=== PATIENT | male | born 1990 | race Caucasian/White ===

== ENCOUNTER 2023-11-05 15:31 | Emergency (ER) | payer OTHER, SELFPAY ==
[2023-11-05 15:37] VITALS: BP 140/99; PULSE 89; TEMP 37.4; O2SAT 99; BMI 33.0
--- NOTE | 2023-11-05 15:47 | ED.NAVMDI1 ---
HPI - Nausea/Vomiting/Diarrhea General Chief complaint: Nausea/Vomiting/Diarrhea Stated complaint: ABDOMINAL PAIN, NAUSEA Time Seen by Provider: 11/05/23 15:41 Source: patient Mode of arrival: walk-in Limitations: no limitations History of Present Illness HPI Narrative: 33-year-old male presents for nausea and vomiting. He has had this for 6 days. He has been seen at 2 other emergency departments and his family doctor in these past 6 days. He has not had fever or hematemesis. He was told that this is due to smoking marijuana. Related Data Previous Rx's ?Medication ?Instructions ?Recorded metronidazole 500 mg tablet 500 mg PO TID #30 tabs 11/05/23 promethazine 25 mg tablet 25 mg PO Q6H PRN nausea and 11/05/23 vomiting #20 tabs Allergies Allergy/AdvReac Type Severity Reaction Status Date / Time No Known Drug Allergies Allergy Verified 11/05/23 15:36 Review of Systems ROS Narrative A ten point review of systems is negative except as noted above. Exam Narrative Exam Narrative: Nurses note and vital signs reviewed and patient is not hypoxic. General: The patient appears well and in no apparent distress. Skin: Warm, dry, no pallor noted. There is no rash noted. Head: Normocephalic, atraumatic Eye: Normal conjunctiva, no drainage Ears, Nose, Mouth, and Throat: oral mucosa is moist. Nares patent. Cardiovascular: Regular Rate and Rhythm Respiratory: Patient is in no distress, no accessory muscle use, lungs are clear to auscultation, no wheezing, rales or rhonchi Back: non-tender GI: no tenderness to palpation, no masses appreciated. No rebound, guarding, or rigidity noted. Musculoskeletal: The patient has no evidence of calf tenderness, no pitting edema, symmetrical pulses noted bilaterally Neurological: A&O, normal speech Psychiatric: Cooperative Constitutional Vital Signs, click to edit/add: Last Vital Signs Temp 99.3 F 11/05/23 15:37 Pulse 54 L 11/05/23 16:49 Resp 16 11/05/23 16:49 BP 160/97 H 11/05/23 16:49 Pulse Ox 98 11/05/23 16:49 O2 Del Method Room Air 11/05/23 15:37 Course Vital Signs Vital signs: Vital Signs Temperature 99.3 F 11/05/23 15:37 Pulse Rate 89 11/05/23 15:37 Respiratory Rate 18 11/05/23 15:37 Blood Pressure 140/99 H 11/05/23 15:37 Pulse Oximetry 99 11/05/23 15:37 Oxygen Delivery Method Room Air 11/05/23 15:37 Temperature 99.3 F 11/05/23 15:37 Pulse Rate 54 L 11/05/23 16:49 Respiratory Rate 16 11/05/23 16:49 Blood Pressure 160/97 H 11/05/23 16:49 Pulse Oximetry 98 11/05/23 16:49 Oxygen Delivery Method Room Air 11/05/23 15:37 MDM - Nausea/Vomiting/Diarrhea MDM Narrative Medical decision making narrative: Blood work is essentially normal. CT scan was performed at [facility] 2 days ago and showed questionable colitis. Yesterday his doctor prescribed him Cipro and I am going to add Flagyl and he was prescribed Phenergan as well. He is tolerating p.o. liquids here. Treatment diagnosis and follow-up were discussed with the patient and his significant other. Differential Diagnosis Differential diagnosis: Likely food poisoning, gastroenteritis and dehydration Lab Data Attestation: I reviewed the patient's lab results. Labs: Lab Results 11/05/23 Range/Units 15:45 WBC 10.8 (4.0-11.0) 10^3/uL RBC 4.98 (4.70-6.10) 10^6/uL Hgb 16.1 (14.0-18.0) g/dL Hct 43.9 (42.0-54.0) % MCV 88.2 (80.0-94.0) fL MCH 32.3 (25.9-34.0) pg MCHC 36.7 H (29.9-35.2) g/dL RDW 11.4 (11.0-15.0) % Plt Count 309 (150-450) 10^3/uL MPV 10.1 (9.5-13.5) fL Neut % (Auto) 89.6 H (43.0-75.0) % Lymph % (Auto) 7.9 L (20.5-60.0) % [place] % (Auto) 1.9 (1.7-12.0) % Eos % (Auto) 0.0 L (0.9-7.0) % Baso % (Auto) 0.2 (0.2-2.0) % Neut # (Auto) 9.7 H (1.4-6.5) 10^3/uL Lymph # (Auto) 0.9 L (1.2-3.8) 10^3/uL [place] # (Auto) 0.2 L (0.3-0.8) 10^3/uL Eos # (Auto) 0.0 (0.0-0.7) 10^3/uL Baso # (Auto) 0.0 (0.0-0.1) 10^3/uL Abs Immat Gran (auto) 0.04 H (0.00-0.03) 10^3/uL Imm/Tot Granulo (auto) 0.4 (0.0-0.5) % Sodium 139 (136-145) mmol/L Potassium 3.6 (3.5-5.1) mmol/L Chloride 101 (98-107) mmol/L Carbon Dioxide 27.1 (21.0-32.0) mmol/L Anion Gap 14.5 BUN 14.0 (7.0-18.0) mg/dL Creatinine 1.12 (0.70-1.30) mg/dL Est GFR ( Amer) >60 (>=60) Est GFR (Non-Af Amer) >60 (>=60) BUN/Creatinine Ratio 12.5 Glucose 137 H (74-106) mg/dL Calcium 9.5 (8.5-10.1) mg/dL Discharge Plan Discharge Stand Alone Forms: Portal Instructions Chief Complaint: Nausea/Vomiting/Diarrhea Clinical Impression: Colitis Patient Disposition: Home, Self-Care Time of Disposition Decision: 17:19 Condition: Good Mode of Transportation: Private Vehicle Prescriptions / Home Meds: New metronidazole 500 mg tablet 500 mg PO TID Qty: 30 0RF promethazine 25 mg tablet 25 mg PO Q6H PRN (Reason: nausea and vomiting) Qty: 20 0RF Print Language: Setswana Instructions: Colitis (ED) Additional Instructions: Continue the Cipro Referrals: Physician,Non-Staff, [Physician] - 1 week
[2023-11-05] MEDS: PROMETHAZINE HCL 12.5 MG in 0.9 % SODIUM CHLORIDE 50 ML 202 MG IV (15:56)
[2023-11-05] MEDS: 0.9 % SODIUM CHLORIDE 1,000 ML 1000 ML IV (15:57)
[2023-11-05 16:03] LABS: Basophils Percent Auto 0.2 % (0.2-2.0); Hematocrit 43.9 % (42.0-54.0); Hemoglobin 16.1 g/dL (14.0-18.0); Immature Granulocytes Abs Auto 0.04 10^3/uL (0.00-0.03); Immature Granulocytes Pct Auto 0.4 % (0.0-0.5); Lymphocytes Absolute Auto 0.9 10^3/uL (1.2-3.8); Lymphocytes Percent Auto 7.9 % (20.5-60.0); Mean Corpuscular HGB Conc 36.7 g/dL (29.9-35.2); Mean Corpuscular Hemoglobin 32.3 pg (25.9-34.0); Mean Corpuscular Volume 88.2 fL (80.0-94.0); Mean Platelet Volume 10.1 fL (9.5-13.5); Monocytes Absolute Auto 0.2 10^3/uL (0.3-0.8); Monocytes Percent Auto 1.9 % (1.7-12.0); Neutrophils Absolute Auto 9.7 10^3/uL (1.4-6.5); Neutrophils Percent Auto 89.6 % (43.0-75.0); Platelet Count 309 10^3/uL (150-450); Red Blood Count 4.98 10^6/uL (4.70-6.10); Red Cell Distribution Width 11.4 % (11.0-15.0); White Blood Count 10.8 10^3/uL (4.0-11.0)
[2023-11-05 16:07] LABS: Anion Gap 14.5; BUN Creatinine Ratio 12.5; Calcium 9.5 mg/dL (8.5-10.1); Carbon Dioxide 27.1 mmol/L (21.0-32.0); Chloride 101 mmol/L (98-107); Estimated GFR (African America >60 (>=60); Estimated GFR (Non-African Ame >60 (>=60); Glucose 137 mg/dL (74-106); Potassium 3.6 mmol/L (3.5-5.1); Sodium 139 mmol/L (136-145)
[2023-11-05 16:49] VITALS: BP 160/97; PULSE 54; O2SAT 98
[2023-11-05 17:27] VITALS: BP 131/79; PULSE 61; TEMP 37.2; O2SAT 99
== END 2023-11-05 17:29 | disposition home or self-care (01) ==
PROVIDERS: Emergency Provider Emergency Medicine; PCP Family Medicine
DX: K52.9 Noninfective gastroenteritis and colitis, unspecified (principal)
CPT/HCPCS: 36415; 80048; 85025; 96361; 96365; 99284; J2250